=== PATIENT | female | born 1990 | race Two or more races ===

== ENCOUNTER 2025-04-04 13:46 | Emergency (ER) | payer OTHER ==
[~2025-04-04] VITALS: Ht 165.1 cm; Wt 77.1 kg
[2025-04-04] MEDS ORDERED: ACETAMINOPHEN 325 MG TABLET PO ONE (16:45)
[2025-04-04] MEDS ORDERED: CEFTRIAXONE SODIUM 1,000 MG VIAL IM ONE (16:45)
[2025-04-04] MEDS ORDERED: BENZONATATE 100 MG CAPSULE PO ONE (16:45)
[2025-04-04] MEDS ORDERED: CEFTRIAXONE SODIUM 1,000 MG VIAL ONE (17:01)
[2025-04-04] MEDS ORDERED: LIDOCAINE HCL 1% 10ML VIAL ONE (17:01)
[2025-04-04] MEDS ORDERED: ACETAMINOPHEN 500 MG GEL..CAP PO ONE (17:01)
[2025-04-04 17:28] LABS: BASO % 0.5 % (0.1-1.2); EOS # 0.30 (0.04-0.54); EOS % 5.4 % (0.7-7.0); LYMPH # 1.92 (1.18-3.74); LYMPH % 34.6 % (19.3-53.1); MEAN PLATELET VOLUME 10.60 fl (9.4-12.4); MONO # 0.78 (0.24-0.82); NEUT # 2.51 (1.56-6.13); NEUT % 45.2 % (34.0-71.1); RED CELL DISTRIBUTION WIDTH 12.5 % (11.6-14.4)
[2025-04-04 17:32] LABS: MONO % 14.1 % (4.7-12.5)
[2025-04-04 17:46] LABS: ALT/SGPT 27.0 U/L (12-78); AST/SGOT 15.0 U/L (15-37); BILIRUBIN TOTAL 0.29 mg/dL (0.3-1.2); BUN CREA RATIO 9.0 (7.0-25.0); CREATININE SERUM 0.86 mg/dL (0.55-1.02); GFR 76.47; GLOBULINA 3.9 G/DL (2.4-3.5); GLUCOSE FASTING 83.0 mg/dL (65-100); OSMOLALITY SERUM 279.0 MOSM/KG (275-295)
[2025-04-04 19:05] LABS: COVID-19 AG NEGATIVE (NEGATIVE)
== END 2025-04-04 22:27 | disposition home or self-care (01) ==
LOC: ER 13:47
PROVIDERS: General Practice
DX: J11.1 Influenza due to unidentified influenza virus with other respiratory manifestations (principal); R05.8 Other specified cough; R53.1 Weakness; R51.9 Headache, unspecified; Z20.822 Contact with and (suspected) exposure to COVID-19
CPT/HCPCS: 36415; 96372; 99282; J0696